=== PATIENT | female | born 1970 | race Caucasian/White ===

== ENCOUNTER 2020-09-07 09:53 | Day surgery (SDC) | payer BC ==
[2020-09-07] MEDS ORDERED: LIDOCAINE HCL 2% 100 MG/5 ML IJ ONE (09:54)
[2020-09-07] MEDS ORDERED: Decadron 4 MG INJ IV ONE (09:54)
--- NOTE | 2020-09-07 12:35 | XRAY ---
Indication: Left C2-C5 MBB. Intraoperative fluoroscopy was provided for 25 seconds. 3 digital spot image submitted for interpretation demonstrates posterior needle tips projecting over the expected left C2-C5 nerve roots. Correlate with intraoperative findings/report.
--- NOTE | 2020-09-07 13:22 | XRAY ---
25 seconds fluoroscopy time in surgery for left C2-C5 MBB.
[2020-09-07] MEDS ORDERED: Lactated Ringers 1,000 ML IV ONE (13:51)
== END 2020-09-07 11:45 | disposition home or self-care (01) ==
LOC: SDC-PAIN 09:53
PROVIDERS: ATTEND Psychiatry & Neurology Pain Medicine
DX: M47.812 Spondylosis without myelopathy or radiculopathy, cervical region (principal); I10 Essential (primary) hypertension; Z79.899 Other long term (current) drug therapy
CPT/HCPCS: 64490; 64491; 64492; 72020; 77002; 84703; J1100

== ENCOUNTER 2020-10-05 09:47 | Day surgery (SDC) | payer BC ==
[2020-10-05] MEDS ORDERED: BUPIVACAINE 0.5% VIAL IJ ONE (09:48)
[2020-10-05] MEDS ORDERED: Decadron 4 MG INJ IV ONE (09:48)
[2020-10-05] MEDS ORDERED: DIPRIVAN 200 MG/20 ML IV ONE (11:13)
--- NOTE | 2020-10-05 12:08 | XRAY ---
Indication: Left C2-C5 MBB. Intraoperative fluoroscopy provided for 25 seconds. 2 digital spot images submitted for interpretation demonstrate posterior needle tips projecting over the expected left C2-C5 nerve roots. Correlate with intraoperative findings/report.
--- NOTE | 2020-10-05 12:11 | XRAY ---
25 seconds fluoroscopy time in surgery for left C2-C5 MBB.
[2020-10-05] MEDS ORDERED: Lactated Ringers 1,000 ML IV ONE (16:03)
== END 2020-10-05 11:46 | disposition home or self-care (01) ==
LOC: SDC-PAIN 09:47
PROVIDERS: ATTEND Psychiatry & Neurology Pain Medicine
DX: M47.812 Spondylosis without myelopathy or radiculopathy, cervical region (principal); F41.9 Anxiety disorder, unspecified; F32.9 Major depressive disorder, single episode, unspecified; I10 Essential (primary) hypertension; Z79.899 Other long term (current) drug therapy
CPT/HCPCS: 72040; 77002; 84703; J1100; J2704

== ENCOUNTER 2020-11-16 08:06 | Day surgery (SDC) | payer BC ==
[2020-11-16] MEDS ORDERED: Decadron 4 MG INJ IV ONE (08:07)
[2020-11-16] MEDS ORDERED: Xylocaine 1% Vial 30 ML PF IJ ONE (08:07)
[2020-11-16] MEDS ORDERED: BUPIVACAINE 0.5% VIAL IJ ONE (08:07)
[2020-11-16] MEDS ORDERED: DIPRIVAN 200 MG/20 ML IV ONE (09:04)
--- NOTE | 2020-11-16 10:48 | XRAY ---
Indication: Left C2-C5 RFA. Intraoperative fluoroscopy provided for 45 seconds. 2 digital spot images submitted for interpretation demonstrates posterior needle tips projecting over the expected left C2-C5 nerve roots. Correlate with intraoperative findings/report.
--- NOTE | 2020-11-16 12:05 | XRAY ---
45 seconds of fluoroscopy was used in surgery for a left C2-C3, C3-C4, C4-C5 RFA.
[2020-11-16] MEDS ORDERED: Lactated Ringers 1,000 ML IV ONE (16:00)
== END 2020-11-16 09:41 | disposition home or self-care (01) ==
LOC: SDC-PAIN 08:06
PROVIDERS: ATTEND Psychiatry & Neurology Pain Medicine
DX: M47.812 Spondylosis without myelopathy or radiculopathy, cervical region (principal); I10 Essential (primary) hypertension; F41.9 Anxiety disorder, unspecified; F32.9 Major depressive disorder, single episode, unspecified; Z79.899 Other long term (current) drug therapy
CPT/HCPCS: 64633; 64634; 72040; 77002; 84703; J1100; J2001; J2704

== ENCOUNTER 2021-01-18 06:48 | Day surgery (SDC) | payer BC ==
[2021-01-18] MEDS ORDERED: LIDOCAINE HCL 2% 100 MG/5 ML IJ ONE (06:49)
[2021-01-18] MEDS ORDERED: Decadron 4 MG INJ IV ONE (06:49)
[2021-01-18] MEDS ORDERED: DIPRIVAN 200 MG/20 ML IV ONE (08:07)
[2021-01-18] MEDS ORDERED: Ketamine HCl 50 MG/ML ONE (08:50)
[2021-01-18] MEDS ORDERED: Lactated Ringers 1,000 ML IV ONE (10:30)
--- NOTE | 2021-01-18 17:04 | XRAY ---
46 seconds fluoroscopy time in surgery for right C2-C4 MBB.
--- NOTE | 2021-01-20 09:17 | XRAY ---
Indication: Right C2-C5 MBB. Intraoperative fluoroscopy was provided for 46 seconds. 2 digital spot images submitted for interpretation demonstrate posterior needle tips projected over the expected course of the right C2-C5 nerve roots. Correlate with intraoperative findings/report.
== END 2021-01-18 09:07 | disposition home or self-care (01) ==
LOC: SDC-PAIN 06:48
PROVIDERS: ATTEND Psychiatry & Neurology Pain Medicine
DX: M47.812 Spondylosis without myelopathy or radiculopathy, cervical region (principal); Z79.899 Other long term (current) drug therapy
CPT/HCPCS: 64490; 64491; 64492; 72040; 77002; 84703; J1100; J2704

== ENCOUNTER 2024-06-25 09:11 | Day surgery (SDC) | payer BC ==
[2024-06-25] MEDS ORDERED: LIDOCAINE HCL 2% 100 MG/5 ML IJ ONE (09:12)
[2024-06-25] MEDS ORDERED: dexAMETHasone sodium phosphate IJ ONE (09:12)
[2024-06-25] MEDS ORDERED: propofoL IV ONE (10:46)
--- NOTE | 2024-06-25 12:10 | XRAY ---
Indication: Left C3-C5 MBB. Intraoperative fluoroscopy provided for 15 seconds. 2 digital spot image submitted for interpretation demonstrates posterior needle tips projecting over expected left C3-C5 nerve roots. Correlate with intraoperative findings/report.
--- NOTE | 2024-06-25 12:18 | XRAY ---
15 seconds of fluoroscopy was used in surgery for a left C3-C5 MBB.
== END 2024-06-25 11:12 | disposition home or self-care (01) ==
LOC: SDC-PAIN 09:11
PROVIDERS: ATTEND Psychiatry & Neurology Pain Medicine
DX: M47.812 Spondylosis without myelopathy or radiculopathy, cervical region (principal)
CPT/HCPCS: 64490; 64491; 72040; 77002; J1100; J2704

== ENCOUNTER 2024-07-29 12:51 | Day surgery (SDC) | payer BC ==
[2024-07-29] MEDS ORDERED: BUPIVACAINE 0.5% VIAL IJ ONE (12:52)
[2024-07-29] MEDS ORDERED: Lactated Ringers 500 ML IV ONE (12:56)
[2024-07-29] MEDS ORDERED: propofoL IV ONE (14:46)
--- NOTE | 2024-07-29 16:34 | XRAY ---
Indication: Left C3-C5 MBB. Intraoperative fluoroscopy provided for 22 seconds. 2 digital spot images submitted for interpretation demonstrates posterior needle tips projecting over expected left C3-C5 nerve roots. Correlate with intraoperative findings/report.
--- NOTE | 2024-07-29 16:38 | XRAY ---
22 seconds of fluoroscopy was used in surgery for a left C3-C5 MBB.
== END 2024-07-29 15:05 | disposition home or self-care (01) ==
LOC: SDC-PAIN 12:51
PROVIDERS: ATTEND Psychiatry & Neurology Pain Medicine
DX: M47.812 Spondylosis without myelopathy or radiculopathy, cervical region (principal); M79.18 Myalgia, other site
CPT/HCPCS: 64490; 64491; 72040; 77002; J2704

== ENCOUNTER 2024-10-14 10:28 | Day surgery (SDC) | payer BC ==
[2024-10-14] MEDS ORDERED: LIDOCAINE HCL 1% 50 MG/5 ML VL IJ ONE (10:29)
[2024-10-14] MEDS ORDERED: BUPIVACAINE 0.5% VIAL IJ ONE (10:29)
[2024-10-14] MEDS ORDERED: dexAMETHasone sodium phosphate IJ ONE (10:29)
[2024-10-14] MEDS ORDERED: propofoL IV ONE ×2 (13:09→13:20)
[2024-10-14] MEDS ORDERED: Lactated Ringers 1,000 ML IV ONE (16:35)
--- NOTE | 2024-10-14 21:02 | XRAY ---
Indication: Left C3-C5 RFA. Intraoperative fluoroscopy provided for 29 seconds. 4 digital spot image submitted for interpretation demonstrates posterior needle tips projecting over expected left C3-C5 nerve roots. Correlate with intraoperative findings/report.
--- NOTE | 2024-10-14 21:22 | XRAY ---
29 seconds of fluoroscopy was used in surgery for a left C3-C5 RFA.
== END 2024-10-14 13:46 | disposition home or self-care (01) ==
LOC: SDC-PAIN 10:28
PROVIDERS: ATTEND Psychiatry & Neurology Pain Medicine
DX: M47.812 Spondylosis without myelopathy or radiculopathy, cervical region (principal)
CPT/HCPCS: 64633; 64634; 72040; J1100; J2704